=== PATIENT | female | born 2005 | race Caucasian/White ===

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

== ENCOUNTER 2024-07-07 09:02 | Emergency (ER) | payer SELFPAY ==
[2024-07-07 09:06] VITALS: BP 148/96; PULSE 88; RESP 16; TEMP 36.6; O2SAT 100
--- NOTE | 2024-07-07 09:13 | ED_ITS ---
HPI - General Adult General Chief complaint: Unspecified Stated complaint: right face swelling Time Seen by Provider: 07/07/24 09:03 History of Present Illness HPI narrative: 19 y/o Female no past medical history presents emergency department for right mandibular swelling for 1 day. Patient states the swelling was mild yesterday and woke up this morning with increased swelling which prompted her to come to the ED. She reports some tenderness to the area but no significant pain. She notes that she has a fractured tooth in her right lower molar and is concerned she may have an infection. She denies fever, nausea vomiting, difficulty swallowing or breathing. She does not have a dentist. LMP within the past week. Denies possibility of . Related Data Allergies Allergy/AdvReac Type Severity Reaction Status Date / Time amoxicillin [From Augmentin] Allergy Unknown red raw Verified 07/07/24 09:09 butt clavulanic acid Allergy Unknown red raw Verified 07/07/24 09:09 [From Augmentin] butt Review of Systems Review of Systems: All systems reviewed & are unremarkable except as noted in HPI and below PMFSH Past Medical History Medical History Healthy female adolescent Kidney stone Surgical History Surgical History No history of previous surgery Family History Family History Mother Thyroid disorder Social History Social History Smoking status: Never smoker Alcohol intake: never Substance use: never Exam Narrative: GENERAL: Well-appearing, well-nourished, and in no acute distress. HEAD: Normocephalic, atraumatic. EYES: PERRLA and EOMI. ENT: Nares clear, no rhinorrhea or epistaxis. Mucous membranes moist. Posterior pharynx without erythema or edema, no tonsillar exudates or hypertrophy. Uvula is midline. Fractured tooth #30 with surrounding edema and overlying mandibular edema. No evidence of periapical abscess. There is induration to the mandible with no fluctuance, erythema, tenderness. No submandibular edema. Floor of mouth is soft without crepitus. No trismus. Patient tolerating his secretions and swallowing easily on exam. Bilateral TMs are chen nonbulging with normal canals. NECK: Supple. CHEST: Clear to auscultation. No respiratory distress. HEART: Regular rate and rhythm. No murmur heard. Normal peripheral pulses. EXTREMITIES: Normal range of motion. No edema. SKIN: Warm, dry, no rash. NEURO: No focal deficits. Alert and oriented x3 Course Vital Signs Vital signs: Vital Signs Temperature 97.9 F 07/07/24 09:06 Pulse Rate 88 07/07/24 09:06 Respiratory Rate 16 07/07/24 09:06 Blood Pressure 148/96 H 07/07/24 09:06 Pulse Oximetry 100 07/07/24 09:06 Temperature 97.9 F 07/07/24 09:06 Pulse Rate 88 07/07/24 09:06 Respiratory Rate 16 07/07/24 09:06 Blood Pressure 148/96 H 07/07/24 09:06 Pulse Oximetry 100 07/07/24 09:06 Medical Decision Making [facility] Narrative Medical decision making narrative: 19-year-old female presents to the emergency department for right mandibular swelling for 1 day. Vitals are stable. She is afebrile nontoxic appearing. Exam is significant for a fractured tooth #30 with surrounding edema and overlying mandibular edema. No evidence of periapical abscess. There is induration to the mandible with no fluctuance, erythema, tenderness. No submandibular edema. Floor of mouth is soft without crepitus. No trismus. Patient tolerating his secretions and swallowing easily on exam. Suspect fractured tooth the source of edema and likely underlying infection. She has an allergy to Augmentin, will start clindamycin. She was given referrals for dentist encouraged to follow-up. Advised Tylenol/ ibuprofen for pain. Strict ED return precautions were discussed. She is agreeable to the plan verbalized understanding. Discharged in stable condition. Vital Signs Vital Signs: Vital Signs Temperature 97.9 F 07/07/24 09:06 Pulse Rate 88 07/07/24 09:06 Respiratory Rate 16 07/07/24 09:06 Blood Pressure 148/96 H 07/07/24 09:06 Pulse Oximetry 100 07/07/24 09:06 Temperature 97.9 F 07/07/24 09:06 Pulse Rate 88 07/07/24 09:06 Respiratory Rate 16 07/07/24 09:06 Blood Pressure 148/96 H 07/07/24 09:06 Pulse Oximetry 100 07/07/24 09:06 Discharge Plan Discharge Clinical Impression: Pain, dental Patient Disposition: Home, Self-Care Condition: Stable Instructions: Antibiotic Form, Toothache (ED) Additional Instructions: you were evaluated in the emergency department for facial swelling. It appears the cause of your swelling is from the fractured tooth and likely underlying infection. Please take antibiotics as directed. Take Tylenol and ibuprofen as needed for pain as directed on the bottle. Follow-up with a dentist. Return to the emergency department if you develop a fever, difficulty breathing or swallowing, or other concerning symptoms. Prescriptions: New clindamycin HCl 300 mg capsule 300 mg PO Q8H 7 Days Qty: 21 0RF No Action amoxicillin 875 mg tablet 875 mg PO Q12H Qty: 20 0RF Follow-up/Referrals: Jef,LUX Blum [Primary Care Provider] -
[2024-07-07] MEDS: CLINDAMYCIN HCL 150 MG CAP 450 MG PO (09:23)
== END 2024-07-07 09:28 | disposition home or self-care (01) ==
LOC: ANHED 09:24
PROVIDERS: Emergency Provider Physician Assistant; PCP Physician Assistant
DX: K08.89 Other specified disorders of teeth and supporting structures (principal); Z87.442 Personal history of urinary calculi
CPT/HCPCS: 99283; A9270

== ENCOUNTER 2024-11-25 00:41 | Emergency (ER) | payer SELFPAY ==
--- NOTE | ~2024-11-25 | CT_ITS ---
CT scan of the Neck Technique: 2.5 mm axial scans were obtained through the neck after intravenous administration of 75 c c Omnipaque 350. Coronal and sagittal reconstructions of the neck were obtained. Dose reduction techn ique was used on this scan by utilizing automated exposure control and iterative reconstruction techn ique. The dose-length product (DLP) was 497.84 mGy-cm. Clinical History: Dental infection Findings: Mildly enlarged lymph nodes are present in right submental region near the angle of the mandible. Par apharyngeal spaces appear normal bilaterally. The parotid and submandibular glands appear normal. No distinct soft tissue mass or abscess evident in the neck. There is extensive subcutaneous soft tis titus edema and swelling over the right mandibular region. The thyroid gland appears normal. Images of the lung apices reveal no abnormalities. Impression: Soft tissue edema and swelling with mild reactive lymphadenopathy over the right mandibular region, c ompatible with soft tissue infection. No abscess or mass lesion evident. Reviewed, dictated and finalized at [facility]. Impression: Soft tissue edema and swelling with mild reactive lymphadenopathy over the righ t mandibular region, compatible with soft tissue infection. No abscess or mass lesion evident.
--- OUTSIDE RECORDS SUMMARY | 2024-11-25 00:43 | XMS_ITS | Clinical Summary ---
Author Organization [facility] Address [address] [place] [address] Care Team Providers Care Police [employer] Dispatcher Name Role Phone Luisa Fuchs Primary Care Provider + Allergies Active Allergy Reactions Criticality Noted Date Comments Amoxicillin-Pot Clavulanate Other (See comments) Low 03/22/2022 my butt gets really red and raw Social History Tobacco Use Types Packs/Day Years Used Date Smoking Tobacco: Never Assessed Comments No Sex and Gender Information Value Date Recorded Sex Assigned at Not on file Legal Sex Female 7:21 PM [employer] Gender Identity Not on file Sexual Orientation Not on file Obstetrics History Last Filed Vital Signs Vital Sign Reading Time Taken Comments Blood Pressure 118/82 03/22/2022 8:02 PM CDT Pulse 95 03/22/2022 8:02 PM CDT Temperature 37.4 C (99.3 F) 03/22/2022 5:14 PM CDT Respiratory Rate 16 03/22/2022 8:02 PM CDT Oxygen Saturation 99% 03/22/2022 8:02 PM CDT Inhaled Oxygen Concentration - - Weight 88.2 kg (194 lb 7.1 oz) 03/22/2022 5:14 P M CDT Height 154.9 cm (5' 1 ) 03/22/2022 5:14 PM CDT Body Mass Index 36.74 03/22/2022 5:14 PM CDT Plan of Treatment Health Maintenance Due Date Last Done Comments Cervical Cancer Screening 2003 Depression Screening 2003 Hepatitis C Screening 2003 HPV Vaccines (1 - 3-dose series) 2018 Meningococcal B Vaccine (1 of 2 - Standard) 2019 Regular Well Visit/Exam 18-64 2021 DTaP/Tdap/Td Vaccine (7 - Td or Tdap) 02/10/2024 02/09/2014, 05/01/2008, 03/27/2005, Additional history exists Influenza Vaccine (#1) 2024 Hepatitis B Screening Completed 04/27/2004 , 2003, 2003, Additional history exists Pneumococcal vaccine <65 Completed 008, 03/27/2005, 06/13/2004, Additional history exists Varicella Vaccines Completed 05/01/2008, 06/13/2004 Meningococcal Vaccine Aged Out 02/09/2014 No david emily eligible based on patient's age to complete this topic Insurance Care Teams Police [employer] Dispatcher Relationship Specialty Start Date End Date Luisa Fuchs PA PCP - General Physician Machine Preservative Filler 03/22/22
--- OUTSIDE RECORDS SUMMARY | 2024-11-25 00:43 | XMS_ITS | Referral Summary ---
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
--- OUTSIDE RECORDS SUMMARY | 2024-11-25 00:43 | XMS_ITS | Clinical Summary ---
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 Gender Identity Not on file Sexual Orientation Not on file Plan of Treatment Health Maintenance Due Date Last Done Comments Hepatitis C Virus (HCV) Screening 2003 Human Papillomavirus (HPV) Immunization (1 - 3-dose series) 2018 Meningococcal B Immunization (1 of 2 - Standard) 2019 Influenza Immunization (#1) 2024 SARS-COV-2 Immunization ( season) 2024 Respiratory Syncytial Virus (RSV) Immunization (Adult) (1 - 1-dose 75+ series) 2078 Hepatitis B Immunization Completed 004, 2003, 2003, Additional history exists Measles Mumps Rubella (MMR) Immunization Discontinued 05/01/2008, 06/13/2004 Pneumococcal Immunization Combined Aged Out 05/01/2008, 03/27/2005, 06/13/2004, Additional history exists No longer eligible based on patient's age to complete this topic Polio (IPV) Immunization Discontinued 008, 2003, 2003, Additional history exists Varicella Immunization Discontinued 05/01/2008, 2003 DTaP/Tdap/Td Immunization Discontinued 2013, 05/01/2008, 03/27/2005, Additional history exists Meningococcal Immunization (ACWY) Aged Out 02/09/2014 No longer eligible based on patient's age to complete this topic TdaP Immunization Completed 02/09/2014 Rotavirus Immunization Aged Out No lo nger eligible based on patient's age to complete this topic
[2024-11-25 00:48] VITALS: BP 139/88; PULSE 92; RESP 20; TEMP 36.6; O2SAT 100
[2024-11-25] MEDS: HYDROcodone/acetaminophen (*CRX) 5-325 MG TABLET 1 TAB (04:36)
[2024-11-25 05:21] LABS: Basophils Absolute Auto 0.1 K/mm3 (0.0-0.1); Basophils Percent Auto 0.3 % (0.2-1.2); Eosinophils Absolute Auto 0.1 K/mm3 (0-0.3); Eosinophils Percent Auto 0.4 % (0-4.4); Hematocrit 38.7 % (37.0-47.0); Hemoglobin 12.1 g/dL (12.0-15.0); Immature Granulocyte Absolute 0.06 K/mm3 (0.00-0.031); Immature Granulocyte Percent A 0.4 % (0-0.5); Lymphocytes Percent Auto 17.1 % (18.3-44.2); Mean Corpuscular HGB Conc 31.3 g/dl (32-36); Mean Corpuscular Hemoglobin 25.9 pg (26-34); Mean Corpuscular Volume 82.7 fl (80-100); Monocytes Absolute Auto 0.9 K/mm3 (0.1-0.6); Monocytes Percent Auto 5.6 % (2.6-8.5); Neutrophils Absolute Auto 11.6 K/mm3 (1.3-6.7); Neutrophils Percent Auto 76.2 % (45.5-73.1); Platelet Count Result 467 k/mm3 (150-375); Red Blood Count 4.68 M/mm3 (4.2-5.4); Red Cell Distribution Width 14.5 % (11.5-14.5); White Blood Count 15.2 K/mm3 (4.5-10.0)
[2024-11-25 05:32] LABS: SPREG INTERNAL CONTROL Positive; Serum Qual hCG Negative
[2024-11-25 05:34] LABS: Alanine Aminotransferase 18 U/L (6-35); Albumin Level 4.6 g/dL (3.5-5.1); Alkaline Phosphatase 97 U/L (38-126); Anion Gap 12 mmol/L (4-12); Aspartate Amino Transferase 21 U/L (14-36); Bilirubin,Total 0.4 mg/dL (0.2-1.3); Blood Urea Nitrogen 11 mg/dL (7-17); CRP 2.3 mg/dL (<1.0); Calcium 9.5 mg/dL (8.4-10.2); Carbon Dioxide 19 mmol/L (22-30); Chloride 106 mmol/L (98-107); Estimated Glomerular Filt Rate > 60; Glucose 117 mg/dL (65-110); Potassium 4.6 mmol/L (3.4-5.0); Sodium 137 mmol/L (137-145)
--- NOTE | 2024-11-25 05:39 | ED_ITS ---
HPI - Dental/Oral General Chief complaint: Dental/Oral Stated complaint: right sided dental pain Time Seen by Provider: 11/25/24 05:21 History of Present Illness HPI Narrative: Patient is a 19-year-old female who presents to the emergency department this morning complaining of right dental pain/swelling. Patient states that within the last 2 days she noticed some pain to her right lower jaw and within the past 24 hours she has noticed significant swelling to the right jaw region. Patient admits that she does have multiple broken tooth in her right lower jaw and has not followed up with a dentist in a while. Denies any recent illness, any fevers or chills. Rates her pain an 8/10. Related Data Allergies Allergy/AdvReac Type Severity Reaction Status Date / Time amoxicillin (From Augmentin) Allergy Unknown red raw Verified 11/25/24 00:41 butt clavulanic acid (From Allergy Unknown red raw Verified 11/25/24 00:41 Augmentin) butt Review of Systems 2 Review of Systems: All systems are reviewed and are negative unless stated otherwise in the HPI. [facility] Past Medical History Medical History Kidney stone Healthy female adolescent Surgical History Surgical History No history of previous surgery Family History Family History Mother Thyroid disorder Social History Social History Smoking status: Never smoker Alcohol intake: never Substance use: never Exam 2 Narrative: General: Alert, awake, afebrile, in no acute distress. HEENT: PERRL, no rhinorrhea, no post nasal drip, oropharynx clear, moderate amount of swelling noted to the right jaw region, multiple dental caries noted, no obvious dental abscess identified. Neck: Trachea midline, no JVD, no lymphadenopathy. Cardiovascular: Regular rate and rhythm, no murmurs, rubs or gallops, no peripheral edema. Respiratory: Clear to auscultation bilaterally, no tachypnea, no wheezing, no rhonchi, no rubs, no respiratory distress. Abdomen: Soft, nontender, nondistended, no rebound, no guarding, no peritoneal signs. Musculoskeletal: No joint swelling or deformity, normal muscle tone. Skin: No rashes or petechia, no signs of infection. Psychiatric: Alert and oriented, normal behavior and judgment for situation. Neurological: Alert and oriented to person, place, and time. Follows all commands. No focal deficits, speech is clear and fluent. Course Vital Signs Vital signs: Vital Signs Temperature 97.8 F 11/25/24 00:48 Pulse Rate 92 11/25/24 00:48 Respiratory Rate 20 11/25/24 00:48 Blood Pressure 139/88 11/25/24 00:48 Pulse Oximetry 100 11/25/24 00:48 Oxygen Delivery Room Air 11/25/24 00:48 Temperature 97.8 F 11/25/24 00:48 Pulse Rate 93 11/25/24 06:13 Respiratory Rate 16 11/25/24 06:13 Blood Pressure 132/98 H 11/25/24 06:13 Pulse Oximetry 99 11/25/24 06:13 Oxygen Delivery Room Air 11/25/24 00:48 MDM - Dental/Oral MDM Narrative Medical decision making narrative: The patient was evaluated by myself in the emergency department. History is obtained from patient who is an independent historian and physical exam was performed. External medical records were reviewed at this time. IV was established and pertinent tests were ordered. Patient was administered an oral Moosic 5-325 mg for pain. Patient was administered 600 mg of IV clindamycin at this time. Laboratory results obtained revealing a leukocytosis of 15.2 and CRP of 2.3 otherwise unremarkable. Imaging studies obtained included CT soft tissue neck with IV contrast which was independently interpreted by me revealing: Soft tissue edema and swelling with mild reactive lymphadenopathy over the right mandibular region, compatible with soft tissue infection. No abscess or mass lesion evident. Differential diagnosis considerations include dental infection, dental abscess. Comorbidities impacting this visit include poor dental hygiene. I have evaluated and discussed social determinants of health with the patient that could potentially impact subsequent diagnosis and treatment plans. On repeat assessment of the patient, reevaluation revealed that the patient is doing well and is in no acute distress. Patient symptoms have improved since she arrived to our emergency department. Repeat vital signs were all reviewed and noted to be stable. Differential diagnosis and treatment plan were discussed with the patient at bedside. Patient agrees with discussion and after shared medical decision making agrees with discharge. All questions were answered to the patient's satisfaction. Patient will follow up with her dentist in 3-5 days. Script for clindamycin was sent to patient's pharmacy to take as prescribed for her dental/soft tissue infection. Patient was provided with strict return precautions and instructed to return to the emergency department if any new or worsening symptoms develop. The patient was discharged in stable condition. Lab Data 11/25/24 05:10 11/25/24 05:10 Labs: Lab Results 11/25/24 Range/Units 05:10 WBC 15.2 H (4.5-10.0) K/mm3 RBC 4.68 (4.2-5.4) M/mm3 Hgb 12.1 (12.0-15.0) g/dL Hct 38.7 (37.0-47.0) % MCV 82.7 (80-100) fl MCH 25.9 L (26-34) pg MCHC 31.3 L (32-36) g/dl RDW 14.5 (11.5-14.5) % Plt Count 467 H (150-375) k/mm3 MPV 9.0 (7.4-10.4) fl Immature Gran % (Auto) 0.4 (0-0.5) % Neut % (Auto) 76.2 H (45.5-73.1) % Lymph % (Auto) 17.1 L (18.3-44.2) % Dyer % (Auto) 5.6 (2.6-8.5) % Eos % (Auto) 0.4 (0-4.4) % Baso % (Auto) 0.3 (0.2-1.2) % Lymph # (Auto) 2.60 (0.9-3.2) K/mm3 Dyer # (Auto) 0.9 H (0.1-0.6) K/mm3 Eos # (Auto) 0.1 (0-0.3) K/mm3 Baso # (Auto) 0.1 (0.0-0.1) K/mm3 Abs Immat Gran (auto) 0.06 H (0.00-0.031) K/mm3 Absolute Neuts (auto) 11.6 H (1.3-6.7) K/mm3 Absolute Nucleated RBC 0.000 (0.0-0.012) K/mm3 Nucleated RBC % 0.0 (0.0-0.2) % ESR 21 H (0-20) mm/hr Sodium 137 (137-145) mmol/L Potassium 4.6 (3.4-5.0) mmol/L Chloride 106 (98-107) mmol/L Carbon Dioxide 19 L (22-30) mmol/L Anion Gap 12 (4-12) mmol/L BUN 11 (7-17) mg/dL Creatinine 0.59 L (0.7-1.0) mg/dL Estim Creat Clear Calc Not Reportable Estimated GFR > 60 (59 - ) Glucose 117 H (65-110) mg/dL Calcium 9.5 (8.4-10.2) mg/dL Total Bilirubin 0.4 (0.2-1.3) mg/dL AST 21 (14-36) U/L ALT 18 (6-35) U/L Alkaline Phosphatase 97 (38-126) U/L C-Reactive Protein 2.3 H (<1.0) mg/dL Total Protein 8.0 (6.3-8.2) g/dL Albumin 4.6 (3.5-5.1) g/dL Serum HCG, Qual Negative Discharge Plan Discharge Clinical Impression: Dental caries, Soft tissue infection Patient Disposition: Home Condition: Improved Instructions: Antibiotic Form Additional Instructions: Please take the prescribed antibiotic as instructed for your dental infection/soft tissue infection. Follow-up with your dentist/family doctor within the next 3-5 days and return to the ED if any new or worsening symptoms develop. Patient Language: Estonian Prescriptions: New clindamycin HCl [Cleocin HCl] 150 mg capsule 450 mg PO Q8H 10 Days Qty: 90 0RF No Action amoxicillin 875 mg tablet 875 mg PO Q12H Qty: 20 0RF clindamycin HCl 300 mg capsule 300 mg PO Q8H 7 Days Qty: 21 0RF Follow-up/Referrals: Jef,LUX Blum [Primary Care Provider] - Stand Alone Forms: Work/School Release IP Time of Disposition: 06:32
[2024-11-25 05:50] LABS: Erythrocyte Sedimentation Rate 21 mm/hr (0-20)
[2024-11-25 06:13] VITALS: BP 132/98; PULSE 93; RESP 16; O2SAT 99
--- NOTE | 2024-11-25 06:20 | PC.NURSE ---
ok to not draw blood cultures per edp michi
[2024-11-25] MEDS: CLINDAMYCIN 600 MG/D5W 50 ML 600 MG/50 ML PIGGYBACK 100 MG IVPB (06:24)
--- NOTE | 2024-11-25 06:24 | PC.NURSE ---
Per EDP no blood cultures needed.
--- OUTSIDE RECORDS SUMMARY | 2024-11-25 06:42 | XMS_ITS | Referral Summary ---
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
--- OUTSIDE RECORDS SUMMARY | 2024-11-25 06:42 | XMS_ITS | Clinical Summary ---
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
--- OUTSIDE RECORDS SUMMARY | 2024-11-25 06:42 | XMS_ITS | Clinical Summary ---
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
[2024-11-25 06:48] VITALS: BP 113/73; PULSE 99; RESP 16; O2SAT 100
== END 2024-11-25 06:50 | disposition home or self-care (01) ==
LOC: ANHED 06:40
PROVIDERS: Emergency Provider Emergency Medicine; PCP Physician Assistant
DX: K02.9 Dental caries, unspecified (principal); L08.9 Local infection of the skin and subcutaneous tissue, unspecified; Z87.442 Personal history of urinary calculi
CPT/HCPCS: 36415; 70491; 80053; 84703; 85025; 85652; 86140; 96365; 99284; A9270; Q9967